=== PATIENT | male | born 1990 | race Caucasian/White ===

== ENCOUNTER 2022-04-30 07:58 | Emergency (ER) | payer BC, OTHER ==
[~2022-04-30] VITALS: Ht 165.1 cm; Wt 95.3 kg
[2022-04-30 08:00] VITALS: BP 139/84
--- NOTE | 2022-04-30 08:00 | NUR ---
[place] [employer] AT BEDSIDE
[2022-04-30] MEDS ORDERED: ACETAMINOPHEN EXTRA STRENGTH 500 MG TAB PO ONE (08:05)
--- NOTE | 2022-04-30 08:07 | NUR ---
R EYEBROW, R CHEEK IRRIGATED.
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
--- NOTE | 2022-04-30 08:17 | NUR ---
pt went to [place]
--- NOTE | 2022-04-30 08:24 | NUR ---
INCIDENT NUMBER [id number], [place] [facility] Jozef NAZARIO #[id number] AT BEDSIDE
--- NOTE | 2022-04-30 08:30 | NUR ---
PT CONSENTED FOR TDAP
[2022-04-30] MEDS ORDERED: FLUORESCEIN OPTH STRIP 1 MG OP ONE (08:35)
[2022-04-30] MEDS ORDERED: TETRACAINE HCL/PF 0.5% OPTH 4 ML BTL OP ONE (08:35)
[2022-04-30] MEDS ORDERED: LIDOCAINE MPF 1% 5 ML ONE (08:38)
--- NOTE | 2022-04-30 08:39 | NUR ---
DR BHATT AT BEDSIDE FOR SUTURE
[2022-04-30] MEDS ORDERED: LIDOCAINE MPF 1% 10 MG/ML VIAL INJ ONE (08:40)
[2022-04-30] MEDS ORDERED: TOMOMETER 1 DEV DEV MC ONE (09:01)
--- NOTE | 2022-04-30 09:01 | NUR ---
REMOVED TONOPEN PER ERMD VERBAL ORDER
[2022-04-30] MEDS ORDERED: BACITRACIN OINT 500 UNITS/GM PKT TP ONE ×2 (09:10→09:18)
[2022-04-30] MEDS ORDERED: BACI-416 TP (09:17)
[2022-04-30] MEDS ORDERED: ACET500C86 PO (09:17)
--- NOTE | 2022-04-30 09:17 | NUR ---
NON ADHERENT APPLIED TO R CHEEK, BANDAID TO R EYEBROW
--- NOTE | 2022-04-30 09:37 | NUR ---
PATIENT BIB [place] [employer]. PATIENT EXAMINED BY DR. BHATT. PATIENT MEDICALLY CLEARED AND RELEASED IN CUSTODY IN STABLE CONDITION. ORIGINAL PRE-BOOK FORM GIVEN TO OFFICER MANSI [id number].
[2022-05-03] MEDS ORDERED: BACITRACIN OINT 500 UNITS/GM PKT TP ONE (07:45)
== END 2022-04-30 09:37 | disposition home or self-care (01) ==
LOC: MED 07:58
DX: S02.2XXA Fracture of nasal bones, initial encounter for closed fracture (principal); S05.31XA Ocular laceration without prolapse or loss of intraocular tissue, right eye, initial encounter; S09.90XA Unspecified injury of head, initial encounter; I10 Essential (primary) hypertension; Z02.89 Encounter for other administrative examinations; Z79.899 Other long term (current) drug therapy; Y04.2XXA Assault by strike against or bumped into by another person, initial encounter; Y93.89 Activity, other specified; Y92.89 Other specified places as the place of occurrence of the external cause; Y99.8 Other external cause status
CPT/HCPCS: 70450; 70486; 90471; 90715; 99284; J2001